=== PATIENT | male | born 1970 | race Two or more races ===

== ENCOUNTER 2020-08-26 15:06 | Emergency (ER) | payer OTHER ==
[~2020-08-26] VITALS: Ht 177.8 cm; Wt 89.4 kg
[~2020-08-26 15:06] MED LIST: AMBIEN10 MG; DEPAKOTE ER250 MG; KLONOPIN1 MG/TAB; METFORMIN HCL500 MG; PRINIVIL5 MG; SEROQUEL50 MG; SYNTHROID300 MCG
[2020-08-26] MEDS ORDERED: SYNTHROID200 MCG PO (15:24)
[2020-08-26] MEDS ORDERED: SILENOR3 MG PO (15:25)
[2020-08-26] MEDS ORDERED: GEMFIBROZIL600 MG PO (15:26)
[2020-08-26] MEDS ORDERED: ONDANSETRON HCL4 MG PO (21:01)
[2020-08-26] MEDS ORDERED: PERCOCET 5-3251 EACH PO (21:01)
[2020-08-26] MEDS ORDERED: PROTONIX20 MG PO (21:01)
== END 2020-08-26 21:05 | disposition home or self-care (01) ==
LOC: ER 15:06
DX: R10.12 Left upper quadrant pain (principal); R10.13 Epigastric pain